=== PATIENT | female | born 1970 | race Caucasian/White ===

== ENCOUNTER → 2017-08-30 | Outpatient (CLI) | payer BC ==
--- NOTE | 2017-08-31 08:37 | RADIOLOGY IMAGING REPORT ---
FACILITY: [facility] - [place] PATIENT NAME: EMERSON GUERRERO : [id number] MR: [id number] V: [id number] EXAM DATE: ORDERING PHYSICIAN: SHANE MCCULLOUGH TECHNOLOGIST: Khushboo Bustamante PROCEDURE:BILATERAL DIGITAL SCREENING MAMMOGRAM WITH CAD ASSISTED INTERPRETATION & 3D TOMOSYNTHESIS COMPARISON:Prior mammograms 08/11/16, 02/27/15. INDICATIONS:screening FINDINGS: Mildly heterogeneous fibroglandular tissue is seen throughout the breasts. The parenchymal pattern has remained stable allowing for difference in mammographic technique & patient positioning. There is no evidence of malignant appearing mass, malignant appearing calcifications or other secondary sign of malignancy in either breast. DIAGNOSTIC CATEGORY 1--NEGATIVE. RECOMMENDATIONS: ROUTINE MAMMOGRAM AND CLINICAL EVALUATION. IMPRESSION: BIRADS 1: Negative No significant abnormality is seen. Dictated by: Romelia Colby M.D. on 08/30/2017 at 17:40 Transcribed by: KRIS on 08/31/2017 at 8:21 Approved by: Romelia Colby M.D. on 08/31/2017 at 8:36 [facility]
== END ==
LOC: MAMO 02:22
PROVIDERS: ATTEND Obstetrics & Gynecology
DX: Z12.31 Encounter for screening mammogram for malignant neoplasm of breast (principal)
CPT/HCPCS: 77063; 77067

== ENCOUNTER → 2017-10-03 | Outpatient (CLI) | payer BC ==
[~2017-10-03] MED LIST: LACT1CAP6 PO; LEVO-3 PO; MULT1CAP59 PO
--- NOTE | 2017-10-03 15:33 | RADIOLOGY IMAGING REPORT ---
FACILITY: [facility] PATIENT NAME: Lana Medina : 1970 MR: [id number] V: [id number] EXAM DATE: ORDERING PHYSICIAN: SHANE MCCULLOUGH TECHNOLOGIST: Location: [facility] - [place] Patient: Lana Medina : 1970 Visit/Account:[id number] Date of Sevice: 10/03/2017 THYROID HISTORY: Thyromegaly and hypothyroid COMPARISON: Thyroid ultrasound November 14, 2008 FINDINGS: SIZE: Normal. Right lobe: 4.7 x 2.2 x 2.7 cm Left lobe: 3.6 x 1.1 x 1.1 cm Isthmus: 1.5 mm PARENCHYMA: Homogeneous. NODULES: Right lobe: * There is a 2.9 x 1.7 x 2.5 cm slightly lobular solid hypervascular nodule in the mid to inferior r ight lobe. This nodule previously measured 2 x 1.8 x 1.2 cm Left lobe: * There is a well-circumscribed isoechoic nodule inferior left lobe measuring 7 mm in diameter Isthmus: * None discrete. VASCULARITY: Within normal limits. ADDITIONAL FINDINGS: None. IMPRESSION: 2.9 x 1.7 x 2.5 cm slightly lobular hypervascular nodule in the mid to inferior right lobe has increa sed in size when compared to the prior study, previously measuring 2 x 1.8 x 1.2 cm. This mass was a pparently biopsied in May 2009. Given the interval increase in size however ultrasound-guided f ine-needle aspiration could be reperformed if desired. REFERENCE: 2015 [place] [employer] Management Guidelines for Adult Patients with Thyroid Nodules and D ifferentiated Thyroid Cancer: The [place] [employer] Guidelines Task Force on Thyroid Nodul es and Differentiated Thyroid Cancer. SONOGRAPHIC PATTERNS: * Benign: Purely cystic nodules (no solid component); estimated risk of malignancy <1 percent; no bi opsy recommended. * Very Low Suspicion: Spongiform or partially cystic nodules without any of the sonographic features described in low, intermediate, or high suspicion patterns; estimated risk of malignancy <3 percent; consider FNA at > 2 cm (Observation without FNA is also a reasonable option). * Low Suspicion: Isoechoic or hyperechoic solid nodule, or partially cystic nodule with eccentric so lid areas, without microcalcification, irregular margin or ETE (extra-thyroidal extension), or taller than wide shape; estimated risk of malignancy 5-10 percent; recommend FNA at >1.5 cm. * Intermediate Suspicion: Hypoechoic solid nodule with smooth margins without microcalcifications, E TE (extra-thyroidal extension), or taller than wide shape; estimated risk of malignancy 10-20 percent ; recommend FNA at > 1 cm. * High Suspicion: Solid hypoechoic nodule or solid hypoechoic component of a partially cystic nodule with one or more of the following features: irregular margins (infiltrative, microlobulated), microc alcifications, taller than wide shape, rim calcifications with small extrusive soft tissue component, evidence of ETE (extra-thyroidal extension); estimated risk of malignancy >70-90 percent; recommend FNA at > 1 cm. NOTES: * Although a sonographically suspicious subcentimeter thyroid nodule without evidence of extrathyroi gerardo extension or sonographically suspicious lymph nodes may be observed with close sonographic follow -up rather than pursuing immediate FNA, patient age and preference may modify decision-making. A > 50% interval increase in nodule volume and/or development of new suspicious sonographic features are felt to be a valid reasons for potential re-aspiration of a nodule previously shown to have benig n FNA cytology. Report Dictated By: Romelia Colby MD at 10/03/2017 3:21 PM Report E-Signed By: Romelia Colby MD at 10/03/2017 3:30 PM WSN:[email or web address]
== END ==
LOC: US 11:01
PROVIDERS: ATTEND Obstetrics & Gynecology
DX: E01.0 Iodine-deficiency related diffuse (endemic) goiter (principal)
CPT/HCPCS: 76536

== ENCOUNTER → 2017-10-19 | Outpatient (CLI) | payer BC ==
[2017-10-19 10:57] LABS: INR 1.02
--- NOTE | 2017-10-19 16:37 | RADIOLOGY IMAGING REPORT ---
FACILITY: [facility] - [place] PATIENT NAME: Lana Medina : 1970 MR: [id number] V: [id number] EXAM DATE: ORDERING PHYSICIAN: SHANE MCCULLOUGH TECHNOLOGIST: Location: [facility] - [place] Patient: Lana Medina : 1970 Visit/Account:[id number] Date of Sevice: 10/19/2017 Exam type: THYROID BIOPSY FINE NEEDLE ASP History: Thyromegaly with growth of nodule Comparison: Thyroid ultrasound October 03, 2017. Findings: Informed consent was obtained. The right side of the patient's neck was prepped and draped in usual sterile fashion. Local anesthesia was accomplished with 1% lidocaine. Under sonographic guidance fo ur separate 25-gauge FNA biopsies were obtained through the dominant nodule in the right lobe the thy roid gland. Samples were given to the architectural technologist for processing. The procedure was acco mplished without apparent complication. IMPRESSION: 1. Successful sonographically guided FNA biopsy of the dominant nodule in the right lobe the thyroid gland Report Dictated By: Romelia Colby MD at 10/19/2017 4:31 PM Report E-Signed By: Romelia Colby MD at 10/19/2017 4:32 PM DEDEN:[place]
== END ==
LOC: US 00:57
PROVIDERS: ATTEND Obstetrics & Gynecology
DX: Z01.812 Encounter for preprocedural laboratory examination (principal); E01.0 Iodine-deficiency related diffuse (endemic) goiter
CPT/HCPCS: 10022; 36415; 76942; 85610; 88104; 88172

== ENCOUNTER → 2018-10-02 | Outpatient (CLI) | payer BC ==
--- NOTE | 2018-10-03 10:50 | RADIOLOGY IMAGING REPORT ---
FACILITY: [facility] - [place] PATIENT NAME: EMERSON GUERRERO : [id number] MR: [id number] V: [id number] EXAM DATE: [id number] ORDERING PHYSICIAN: SHANE MCCULLOUGH TECHNOLOGIST: Hawa Mancia PROCEDURE: BILATERAL DIGITAL SCREENING MAMMOGRAM WITH CAD ASSISTED INTERPRETATION & 3D TOMOSYNTHESIS REASON FOR STUDY: Screening FAMILY HISTORY OF BREAST CANCER: Maternal Aunt BREAST PROCEDURES/TREATMENTS: None COMPARISON: 08/30/17, 08/11/16, 02/27/15 VIEWS OBTAINED: Bilateral 2D & 3D full field CC & MLO projections BREAST DENSITY: The breasts are heterogeneously dense which can obscure small masses. MAMMOGRAM FINDINGS: The parenchymal pattern has remained stable allowing for difference in mammographic technique & patient positioning. IMPRESSION: BIRADS 1: Negative. DIAGNOSTIC CATEGORY 1--NEGATIVE. RECOMMENDATIONS: ROUTINE MAMMOGRAM AND CLINICAL EVALUATION. Dictated by: Romelia Colby M.D. on 10/02/2018 at 15:16 Transcribed by: ZI on 10/03/2018 at 7:00 Approved by: Romelia Colby M.D. on 10/03/2018 at 10:47 [facility]
== END ==
LOC: MAMO 00:17
PROVIDERS: ATTEND Obstetrics & Gynecology
DX: Z12.31 Encounter for screening mammogram for malignant neoplasm of breast (principal)
CPT/HCPCS: 77063; 77067